=== PATIENT | male | born 1960 | race Caucasian/White ===

== ENCOUNTER 2019-01-23 19:38 | Emergency (ER) | payer BC ==
[~2019-01-23] VITALS: Ht 182.9 cm; Wt 70.0 kg
[2019-01-23 19:44] VITALS: Ht 182.9 cm; Wt 70.0 kg
[2019-01-23] MEDS ORDERED: SOD CHLORIDE 0.9% 1,000 ML IV STA (20:06)
--- NOTE | 2019-01-24 00:14 | PSY ---
Date/Time of Note Date/Time of Note DATE: 01/24/19 TIME: 00:06 Psychiatric Subjective Eval Consent Pt consented to telemedicine: Yes Subjective Evaluation Patient location: emergency Chief Complaint: ALOC WITH FAILURE TO THRIVE, + POSS HALLUINCATIONS Psychiatric Objective Eval Mental Status Examination: Laboratory Results Laboratory Tests Test 01/23/19 20:19 White Blood Count 5.1 10^3/ul Red Blood Count 5.14 10^6/ul Hemoglobin 14.9 g/dl Hematocrit 44.1 % Mean Corpuscular Volume 85.8 fl Mean Corpuscular Hemoglobin 29.0 pg Mean Corpuscular Hemoglobin Concent 33.8 g/dl Red Cell Distribution Width 13.2 % Platelet Count 182 10^3/UL Mean Platelet Volume 9.0 fl Immature Granulocytes % 0.600 % Neutrophils % 74.4 % Lymphocytes % 17.2 % Monocytes % 6.6 % Eosinophils % 0.6 % Basophils % 0.6 % Nucleated Red Blood Cells % 0.0 /100WBC Immature Granulocytes # 0.030 10^3/ul Neutrophils # 3.8 10^3/ul Lymphocytes # 0.9 10^3/ul Monocytes # 0.3 10^3/ul Eosinophils # 0.0 10^3/ul Basophils # 0.0 10^3/ul Nucleated Red Blood Cells # 0.0 10^3/ul Sodium Level 143 mmol/L Potassium Level 3.4 mmol/L Chloride Level 107 mmol/L Carbon Dioxide Level 25 mmol/L Anion Gap 11 Blood Urea Nitrogen 9 mg/dl Creatinine 0.68 mg/dl Est Glomerular Filtrat Rate mL/min > 60 mL/min Glucose Level 142 mg/dl Calcium Level 9.7 mg/dl Total Bilirubin 0.5 mg/dl Direct Bilirubin 0.00 mg/dl Indirect Bilirubin 0.5 mg/dl Aspartate Amino Transf (AST/SGOT) 23 IU/L Alanine Aminotransferase (ALT/SGPT) 18 IU/L Alkaline Phosphatase 48 IU/L Total Protein 7.5 g/dl Albumin 4.6 g/dl Globulin 2.90 g/dl Albumin/Globulin Ratio 1.58 Salicylates Level < 1.0 mg/dl Acetaminophen Level < 10.0 ug/ml Ethyl Alcohol Level < 10.0 mg/dl Assessment and Plan Recommendation/Plan Discharge Disposition: Community (home) Legal Status: Voluntary Assessment Additional comments: IDENTIFYING INFORMATION: 58 year old [employer] [place] Male patient who is currently located at the hospital and for whom psychiatric consultation was requested. SOURCES OF INFORMATION: The patient who appears to be somewhat reliable and the medical records; the nursing staff. Medicaid Biller, ID:[id number], assisted with the interview from [employer]. CHIEF COMPLAINT: "my voice disappeared". HISTORY OF PRESENT ILLNESS: The patient was interviewed via telemedicine in the presence of and under the supervision of nursing staff of the hospital. The consent to conducting this interview via telemedicine was obtained by the nursing staff at the hospital. RN Mara reports that the patient presented with not eating and drinking, being nonverbal, has not been compliant with meds. Daughter reports that the pt has not been eating as much as usual and she was concerned about any medical problems, because he c/o feeling weak. He has not been speaking as much and has not been taking his medications. he typically refuses to take his medications from time to time. She is not concerned that the patient needs to be admitted to the psychiatric hospital. She reports that the patient has a lot of support at home. She denies the patient having AH, VH, delusions, SI, HI. the patient did not engage in aggressive behavior, and has not expressed having any paranoid thoughts. The pt reports that his voice disappeared, and he cannot speak much. He is not able to answer most questions appropriately. Denies having AH, VH, delusions, SI, HI. Has h/o past psychiatric hospitalizations and past suicide attempt. PAST MEDICAL HISTORY: none. CURRENT MEDICATIONS: zyprexa 15 mg po qday. ALLERGIES TO MEDICATIONS: NKDA. LABORATORY TESTS: CBC wnl, CMP with potassium 3.4, UDS pending, alcohol level not detected. SOCIAL HISTORY: lives alone, , has 1 daughter, on disability, Born and raised in [facility], REVIEW OF SYSTEMS: Constitutional (e.g., fever, weight loss): negative; Eyes, Ears, Nose, Mouth, Throat: negative; Cardiovascular: negative; Respiratory: negative; Gastrointestinal: negative; Genitourinary: negative; Musculoskeletal: negative; Integumentary (skin and/or breast): negative; Neurological: negative; Psychiatric: as per HPI; Endocrine: negative; Hematologic/Lymphatic: negative; Allergic/Immunologic: negative. MENTAL STATUS EXAMINATION: General Appearance and Behavior: Calm, ill-appearing, cooperative with the interview, pleasant with the current interviewer, makes fair eye contact, fairly groomed, no abnormal movements noted, Speech:slow rate, regular rhythm, normal latency, normal volume, decreased amount, Flow of thought: sequential, logical, goal-directed at times, illogical at times, Content of thought: no auditory hallucinations, no visual hallucinations, no delusions, negative for suicidal ideation; no homicidal ideation, Mood: "ok", Affect: dysthymic, somewhat flat, not reactive, Attention: normal based on the interview, Insight: poor, Judgment: poor, Memory: normal based on the interview, Sensorium: alert and oriented to person, place and date. ASSESSMENT: The patient's presentation and history are consistent with the diagnosis of schizophrenia. The patient presents with some symptoms of psychosis in the context of intermittent medication compliance, psychosocial stressors. PLAN: - Medication management: Would continue zyprexa zydis 15 mg po qday. please dispense prescription sufficient for 3 weeks. (the patient received 10 mg of Zyprexa while at the emergency room, please administer another 5 mg) - Labs: Please check UDS. - Psychotherapy: Provided supportive psychotherapy and psychoeducation. - Disposition: The patient is not interested in inpatient admission at the psychiatric hospital at this time. his daughter reports that they will take care of him and if things worsen and then they will come right back to the hospital. The patient is not an imminent danger to self or others. The patient is motivated for outpatient treatment. The patient agrees to be compliant with outpatient follow-up appointments and pharmacotherapy as indicated. Would recommend that the patient follows up with a psychiatrist. Resources for outpatient follow-up will be provided by the hospital staff. The patient's risk for completed suicide is high in comparison to the general population. Risk factors include race, gender, age, schizophrenia, history of past suicide attempts. Protective factors include absence of substance use disorder, bipolar disorder, major depressive disorder, anxiety disorder, personality disorder, no access to firearms, access to care. The patient has an appointment with his psychiatrist in a few weeks, his family will call for an earlier appointment. The patient's risk for completed suicide cannot be modified more effectively with inpatient admission at this time. The patient is not an imminent danger to self or others at this time and does not meet the legal criteria for involuntary admission. Risks, benefits, alternatives were discussed and the patient provided informed consent to proceed with the above plan. Discussed about the above plan with Dr. Isabel. RAJI ANDERSON MD Jan 24, 2019 00:14
[2019-01-24 00:30] VITALS: BP 162/99; PULSE 114; RESP 14
[2019-01-24] MEDS ORDERED: OLAN5TAB68 PO (00:39)
--- NOTE | 2019-01-24 00:41 | ERD ---
ER Documentation Chief Complaint Chief Complaint ALOC WITH FAILURE TO THRIVE, + POSS HALLUINCATIONS HPI 58-year-old male with a history of schizophrenia brought in by his sister and mother for increasing altered mental status. Normally the patient is able to talk and communicate. Normally he is able to take care of himself and go about his daily activities. However over the past few weeks, the patient's condition has declined. He has been less communicative. He has lost a lot of weight. He does eat but not a lot. He is responsible for taking his own medications. His sister thinks that he takes his medications occasionally but not consistently. Otherwise history is limited as the patient is not answering questions. ROS limited due to altered mental status Medications Home Meds Active Scripts Olanzapine* (Zyprexa* Zydis) 5 Mg Tab, 15 MG PO DAILY, #30 TAB Prov:BRONSON ROWLAND MD 01/24/19 Allergies Allergies: Coded Allergies: No Known Allergy (Unverified , 01/24/19) PMhx/Soc Medical and Surgical Hx: pt denies Surgical Hx Hx Psychiatric Problems: Yes (paranoid schizophrenia) Hx Alcohol Use: No Hx Substance Use: No Hx Tobacco Use: No Smoking Status: Never smoker FmHx Family History: No diabetes Physical Exam Vitals Vital Signs Date Temp Pulse Resp B/P (MAP) Pulse Ox O2 O2 Flow FiO2 Time Delivery Rate 01/24/19 114 14 162/99 99 Room Air 00:30 (120) 01/24/19 97.1 81 17 135/85 98 Room Air 00:00 (102) 01/23/19 66 18 110/76 98 Room Air 23:30 (87) 01/23/19 92 17 154/96 99 Room Air 23:00 (115) 01/23/19 81 19 137/84 98 Room Air 22:30 (101) 01/23/19 93 20 156/88 99 Room Air 22:00 (110) 01/23/19 81 19 139/92 98 Room Air 21:30 (108) 01/23/19 87 23 159/98 99 Room Air 21:00 (118) 01/23/19 104 24 149/90 99 Room Air 20:30 (109) 01/23/19 98.6 131 18 153/70 97 19:44 (97) Physical Exam Const: No acute distress. Cachectic Head: Atraumatic Eyes: Normal Conjunctiva, PERRLA ENT: Normal External Ears, Nose and Mouth. Dry oral mucosa Neck: Full range of motion. No meningismus. Resp: Clear to auscultation bilaterally Cardio: Regular rate and rhythm, no murmurs Abd: Soft, non tender, non distended. Normal bowel sounds Skin: No petechiae or rashes Back: No midline or flank tenderness Ext: No cyanosis, or edema Neur: Awake and alert, whispering speech, incomprehensible. No facial asymmetry. Moving all extremities spontaneously. Normal tone in all 4 extremities. Following commands Psych: Calm, flat and strange affect Result Diagram: 01/23/19201801/23/19 2019 Results 24 hrs Laboratory Tests Test 01/23/19 20:19 White Blood Count 5.1 10^3/ul Red Blood Count 5.14 10^6/ul Hemoglobin 14.9 g/dl Hematocrit 44.1 % Mean Corpuscular Volume 85.8 fl Mean Corpuscular Hemoglobin 29.0 pg Mean Corpuscular Hemoglobin Concent 33.8 g/dl Red Cell Distribution Width 13.2 % Platelet Count 182 10^3/UL Mean Platelet Volume 9.0 fl Immature Granulocytes % 0.600 % Neutrophils % 74.4 % Lymphocytes % 17.2 % Monocytes % 6.6 % Eosinophils % 0.6 % Basophils % 0.6 % Nucleated Red Blood Cells % 0.0 /100WBC Immature Granulocytes # 0.030 10^3/ul Neutrophils # 3.8 10^3/ul Lymphocytes # 0.9 10^3/ul Monocytes # 0.3 10^3/ul Eosinophils # 0.0 10^3/ul Basophils # 0.0 10^3/ul Nucleated Red Blood Cells # 0.0 10^3/ul Sodium Level 143 mmol/L Potassium Level 3.4 mmol/L Chloride Level 107 mmol/L Carbon Dioxide Level 25 mmol/L Anion Gap 11 Blood Urea Nitrogen 9 mg/dl Creatinine 0.68 mg/dl Est Glomerular Filtrat Rate mL/min > 60 mL/min Glucose Level 142 mg/dl Calcium Level 9.7 mg/dl Total Bilirubin 0.5 mg/dl Direct Bilirubin 0.00 mg/dl Indirect Bilirubin 0.5 mg/dl Aspartate Amino Transf (AST/SGOT) 23 IU/L Alanine Aminotransferase (ALT/SGPT) 18 IU/L Alkaline Phosphatase 48 IU/L Total Protein 7.5 g/dl Albumin 4.6 g/dl Globulin 2.90 g/dl Albumin/Globulin Ratio 1.58 Salicylates Level < 1.0 mg/dl Acetaminophen Level < 10.0 ug/ml Ethyl Alcohol Level < 10.0 mg/dl Current Medications Medications Dose Sig/[place] Start Time Status Last (Trade) Ordered Route PRN Stop Time Admin Dose Reason Admin Sodium 1,000 ml @ Q1H STAT 01/23/19 DC 01/23/19 Chloride 1,000 mls/hr IV 20:06 20:53 01/23/19 21:05 Olanzapine 5 mg ONCE ONCE 01/24/19 DC 01/24/19 (Zyprexa ODT 01:00 00:56 Zydis) 01/24/19 01:00 Procedures/MDM EMERGENT LABS AND DIAGNOSTIC STUDIES: Lab Results above were reviewed and interpreted by me. CBC: no anemia or evidence of infection CMP: No evidence of electrolyte abnormality, renal failure, hypoglycemia, liver failure, or biliary obstruction Alcohol, salicylate, and Tylenol levels negative Radiology Results as interpreted by Radiology below were reviewed by Meaghan Rowland MD: CT head shows no acute abnormalities Initial Nursing notes reviewed. Previous Medical Records requested via the Electronic Health Record. EMERGENCY DEPARTMENT COURSE / MEDICAL DECISION MAKING: Patient is presenting with weight loss and altered mental status that has been progressively worsening over several weeks. Vitals were unremarkable. I have a low suspicion for stroke, meningitis, encephalitis. Labs did not show any significant abnormalities. Patient does not appear intoxicated. I suspect his symptoms are likely secondary to medication noncompliance and worsening of his chronic mental health disorder. Patient was willing to take Zyprexa by mouth, so I gave him 10 mg of Zydis initially. Patient was evaluated by the tele-psychiatry. He was given the option of hospitalization, however the patient and his family feel more comfortable with discharge home with outpatient management. The patient after taking Zydis was more open to conversation and was answering questions from the tele- psychiatrist. Tele-psychiatrist, Dr. Cronin, feels comfortable with discharging this patient home as family seems very reliable. He recommended discharge with Zydis 15 mg daily. Prescription was given to family. Return precautions were discussed. Departure Diagnosis: Primary Impression: Altered behavior Additional Impression: History of schizophrenia Condition: Stable Patient Instructions: Schizophrenia, General Additional Instructions: Return to the ER if he is having any worsening symptoms. Follow-up with his doctor within the next 2 days. BRONSON ROWLAND MD Jan 24, 2019 00:41
[2019-01-24] MEDS ORDERED: OLANZAPINE (ODT) 5 MG TAB ODT ONE (01:00)
== END 2019-01-24 00:58 | disposition home or self-care (01) ==
LOC: E/R 19:38
DX: R41.82 Altered mental status, unspecified (principal); R00.0 Tachycardia, unspecified; Z86.59 Personal history of other mental and behavioral disorders
CPT/HCPCS: 36415; 70450; 71045; 80053; 80307; 85025; 93005; J7030; Z7502; Z7610